=== PATIENT | male | born 1955 | race Caucasian/White ===

== ENCOUNTER → 2016-08-25 | Outpatient (CLI) | payer BC ==
[~2016-08-25] MED LIST: DIAZ-165 PO; GABA-113 PO; LISI1TAB3 PO; METO25TA56 PO; OXYC-106 PO; PARO1TAB27 PO; PRLSR20 PO
--- NOTE | 2016-08-25 17:10 | DIAGNOSTIC IMAGING REPORT ---
CHEST 2 VIEWS ROUTINE CLINICAL HISTORY: M54.5 preoperative evaluation COMPARISON STUDY: No previous studies for comparison. FINDINGS: The bones soft tissues and hemidiaphragms are normal. The cardiomediastinal silhouette is normal. The lungs are clear. The pulmonary vasculature is normal. IMPRESSION: Negative chest. Electronically signed by: Arash Ramos M.D. 08/25/2016 5:09 PM Dictated Date/Time: 08/25/2016 5:09 PM
== END | disposition home or self-care (01) ==
LOC: C.CPL 16:11
PROVIDERS: ATTEND Orthopaedic Surgery Orthopaedic Surgery of the Spine
DX: M54.5 Low back pain (principal)

== ENCOUNTER 2016-09-19 06:33 | Inpatient (IN) | payer BC ==
[2016-08-25 17:14] LABS: COMPLETE YES; HEMATOCRIT 46.5 % (42-52); IG% 0.2 %; LYMPH % 16.8 %; LYMPH ABS # 1.85 K/uL (1.2-3.4); MEAN CELL VOLUME 90.8 fL (80-100); MEAN CORPUSCULAR HEMOGLOBIN 31.3 pg (25-34); MEAN CORPUSCULAR HGB CONC 34.4 g/dl (32-36); MEAN PLATELET VOLUME 10.7 fL (7.4-10.4); MONO % 5.5 %; NEUT % 77.5 %; PLATELET COUNT 303 K/uL (130-400); RED BLOOD COUNT 5.12 M/uL (4.7-6.1); WHITE BLOOD COUNT 10.99 K/uL (4.8-10.8)
[2016-08-25 17:18] LABS: URINE APPEARANCE CLEAR (CLEAR); URINE BILIRUBIN NEG (NEG); URINE COLOR DK YELLOW; URINE EPITHELIAL CELL AUTO >30 /lpf (0-5); URINE NITRITE NEG (NEG); URINE SPECIFIC GRAVITY 1.035 (1.000-1.030); UROBILINOGEN NEG (NEG)
[2016-08-25 17:21] LABS: MANUAL MICROSCOPIC REQUIRED? NO; REVIEW REQ? YES
[2016-08-25 17:32] LABS: BLOOD UREA NITROGEN 23 mg/dl (7-18); BUN/CREATININE RATIO 24.9 (10-20); CALCIUM 9.5 mg/dl (8.5-10.1); CARBON DIOXIDE 32 mmol/L (21-32); CHLORIDE 104 mmol/L (98-107); CREATININE 0.93 mg/dl (0.60-1.40); GLUCOSE 115 mg/dl (70-99); POTASSIUM 4.7 mmol/L (3.5-5.1); SODIUM 140 mmol/L (136-145)
[2016-09-16 13:50] VITALS: BMI 25.0
[~2016-09-19] VITALS: Ht 182.9 cm; Wt 79.5 kg
[2016-09-19] VITALS (8 sets, daily range): BP systolic 103–142; BP diastolic 63–97; PULSE 56–90; TEMP 36.5–36.9; O2SAT 93–98; Ht 182.9 cm; Wt 79.5 kg
[~2016-09-19 06:33] MED LIST changes: +CEFAZOLIN 1000MG/55 ML D5W IV SCH
[2016-09-19] MEDS ORDERED: NALOXONE HCL 0.4 MG/1 ML VIAL/CARP IV PRN ×4 (08:15→15:15)
[2016-09-19] MEDS ORDERED: EpHEDrine SULFATE INJ 50 MG/ML AMP IV PRN (08:15)
[2016-09-19] MEDS ORDERED: MEPERIDINE HCL 25 MG/ML CARP IV PRN (08:15)
[2016-09-19] MEDS ORDERED: LABETALOL HCL IV 5 MG/ML 20ML IV PRN (08:15)
[2016-09-19] MEDS ORDERED: ONDANSETRON INJ 2 MG/ML 2 ML VIAL IV PRN ×2 (08:15→15:15)
[2016-09-19] MEDS ORDERED: PHENYLEPHRINE 100MCG/ML 5ML SYR IV PRN (08:15)
[2016-09-19] MEDS ORDERED: ATROPINE SULFATE 0.1 MG/ML 5ML SYR IV PRN (08:15)
[2016-09-19] MEDS ORDERED: FLUMAZENIL 0.1 MG/1 ML 10 ML VIAL IV PRN (08:15)
[2016-09-19] MEDS ORDERED: MIDAZOLAM HCL 1 MG/ML 2ML VIAL ONE (09:06)
[2016-09-19] MEDS ORDERED: FENTANYL CITRATE INJ 50 MCG/1 ML 2 ML VIAL ONE ×4 (09:06→11:24)
--- NOTE | 2016-09-19 09:14 | History & Physical Bridge Note ---
H&P Re-Evaluation Bridge Note: I have examined the patient, reviewed the History & Physical and in the interval since the performance of the History & Physical I have noted the following changes of clinical significance: No changes noted
--- NOTE | 2016-09-19 09:15 | History and Physical ---
History & Physical Date Sep 19, 2016. Chief Complaint back and leg pain History of Present Illness The patient is a 61 year old male with complaints of Additional History Hepatic Disease: No Endocrine Disorder: No Kidney Disease: No Hypertension: No Heart Disease: No Bleeding Tendencies: No Infectious Diseases: No Allergies Coded Allergies: Codeine (Unverified Allergy, Unknown, RASH, 09/19/16) Home Medications Scheduled Gabapentin (Neurontin), 300 MG PO HS Lisinopril (Zestril), 30 MG PO BID Metoprolol Tartrate (Lopressor) (Lopressor), 25 MG PO BID Omeprazole (Prilosec), 20 MG PO QAM Paroxetine (Paxil), 20 MG PO QAM Scheduled PRN Diazepam (Valium), 5 MG PO Q6H PRN for RN Oxycodone/Acetaminophen 10MG/325MG (Percocet 10MG/325MG), 1 TAB PO Q4H PRN for PRN Physical Examination Skin: warm/dry, no rash Eyes: normal inspection, EOMI, sclerae normal ENT: normal ENT inspection, pharynx normal Head: normocephalic, atraumatic Neck: supple, no adenopathy, trachea midline Respiratory/Chest: lungs clear, normal breath sounds, no respiratory distress Cardiovascular: regular rate, rhythm, no edema, no murmur Abdomen / GI: normal bowel sounds, non tender Back: normal inspection Extremities: normal inspection, normal range of motion Neurologic/Psych: no motor/sensory deficits, alert, normal reflexes, oriented x 3 Diagnosis lumbar stenosis/HNP L3-4 Plan of Treatment decompression fusion L3-4
[2016-09-19] MEDS ORDERED: SODIUM CHLORIDE 0.9% PF 50 ML VIAL ONE (09:29)
[2016-09-19] MEDS ORDERED: BUPIVACAINE/EPINEPHRINE 0.5% MPF 1:200,000 30 ML VIAL ONE (09:29)
[2016-09-19] MEDS ORDERED: BACITRACIN 50000 UNIT VIAL ONE (09:30)
[2016-09-19] MEDS ORDERED: KETAMINE HCL INJ 50 MG/ML 10 ML VIAL ONE (10:03)
[2016-09-19] MEDS ORDERED: HYDROmorphone INJ 2 MG/ML SYR/VIAL ONE ×2 (10:03→11:24)
[2016-09-19] MEDS ORDERED: EpHEDrine SULFATE INJ 50 MG/ML AMP ONE (10:40)
[2016-09-19] MEDS ORDERED: FLOSEAL HEMOSTATIC MATRIX 10ML TOP ONE (11:15)
[2016-09-19] MEDS ORDERED: ESMOLOL HCL 10 MG/ML 10 ML VIAL ONE ×2 (11:18→12:36)
[2016-09-19] MEDS ORDERED: LIDOCAINE HCL 2% 2 ML VIAL (20MG/ML) ONE (11:18)
[2016-09-19] MEDS ORDERED: DEXAMETHASONE SOD INJ 4 MG/ML VIAL ONE (11:18)
[2016-09-19] MEDS ORDERED: PROPOFOL IV EMULSION 10 MG/ML 20 ML VIAL IV ONE (11:18)
[2016-09-19] MEDS ORDERED: ROCURONIUM BROMIDE 10 MG/ML 5 ML VIAL ONE (11:18)
[2016-09-19] MEDS ORDERED: LABETALOL HCL IV 5 MG/ML 20ML IV ONE ×3 (11:18→12:36)
[2016-09-19] MEDS ORDERED: EpHEDrine SULFATE 50MG/5ML SYR ONE ×2 (11:18→12:36)
--- NOTE | 2016-09-19 11:20 | [facility] Operative Report ---
Operative Report Operative Date Sep 19, 2016. Pre-Operative Diagnosis Lumbar stenosis, herniated nucleus pulposus L3-4 Post-Operative Diagnosis same Procedure(s) Performed tlif Surgeon Dr. Basil Brown Compensation Business Partner Surgeon(s) Fatemeh Gonzalez PA-C Estimated Blood Loss 75ml Findings hnp Specimens None per surgeon I attest to the content of the Intraoperative Record and any orders documented therein. Any exceptions are noted below.
[2016-09-19] MEDS: FENTANYL CITRATE INJ 50 MCG/1 ML 2 ML VIAL IV PRN ×2 (11:44→11:49)
[2016-09-19] MEDS: HYDROmorphone INJ 2 MG/ML SYR/VIAL IV PRN ×4 (11:54→12:19)
[2016-09-19] MEDS ORDERED: GLYCOPYRROLATE INJ 0.2 MG/ML VIAL ONE (12:36)
[2016-09-19] MEDS ORDERED: KETOROLAC TROMETHAMINE 30 MG/ML VIAL ONE (12:36)
[2016-09-19] MEDS ORDERED: ONDANSETRON INJ 2 MG/ML 2 ML VIAL ONE ×2 (12:36)
[2016-09-19] MEDS ORDERED: NEOSTIGMINE METHYLSULFATE 1 MG/ML 10ML VIAL ONE (12:36)
--- NOTE | 2016-09-19 12:50 | Anesthesiology Progress Note ---
Anesthesia Post Op Note Date & Time Sep 19, 2016 at 12:49 Vital Signs Pain Intensity: 3 Vital Signs Past 12 Hours Date Time Temp Pulse Resp B/P (MAP) Pulse Ox O2 Delivery O2 Flow Rate FiO2 09/19/16 12:45 55 17 130/81 100 Nasal Cannula 4 09/19/16 12:35 36.4 65 17 127/82 100 Nasal Cannula 4 09/19/16 12:25 63 16 136/85 99 Nasal Cannula 4 09/19/16 12:15 62 14 143/96 100 Nasal Cannula 4 09/19/16 12:05 66 12 160/100 100 Nasal Cannula 4 09/19/16 11:55 60 12 155/99 100 Mask 10 09/19/16 11:45 63 18 149/96 100 Mask 10 09/19/16 11:35 36.2 71 14 152/88 93 Mask 10 09/19/16 07:25 36.7 56 20 142/97 96 Room Air Notes Mental Status: alert / awake / arousable, participated in evaluation Pt Amnestic to Procedure: Yes Nausea / Vomiting: adequately controlled Pain: adequately controlled Airway Patency, RR, SpO2: stable & adequate BP & HR: stable & adequate Hydration State: stable & adequate Anesthetic Complications: no major complications apparent
--- NOTE | 2016-09-19 13:09 | DIAGNOSTIC IMAGING REPORT ---
LUMBAR SPINE, INTRAOPERATIVE FLUOROSCOPY HISTORY: L3-L4 decompression and fusion. FLUOROSCOPY TIME: 14 seconds. FINDINGS: Intraoperative fluoroscopy was provided for the lumbar spine. 2 fluoroscopic spot images were obtained. Posterior decompression fusion at L3-L4 with pedicle screws and rods. The hardware appears intact. IMPRESSION: Fluoroscopy provided for a L3-L4 posterior decompression and fusion. Electronically signed by: Ji Larson M.D. 09/19/2016 1:08 PM Dictated Date/Time: 09/19/2016 1:07 PM
[2016-09-19] MEDS ORDERED: NURSING VERBAL MED ORDER ONE (13:30)
[2016-09-19] MEDS ORDERED: HYDROmorphone HCL 0.5MG/ML 50 ML CASSETTE ONE (13:31)
[2016-09-19] MEDS ORDERED: HYDROmorphone HCL 0.5MG/ML 50 ML CASSETTE IV PRN ×2 (13:45→15:15)
[2016-09-19] MEDS ORDERED: SODIUM CHLORIDE 0.9% 1000ML 1,000 ML IV SCH ×2 (13:45→15:11)
--- NOTE | 2016-09-19 14:18 | OPERATIVE REPORT ---
DATE OF OPERATION: 09/19/2016 PREOPERATIVE DIAGNOSES: Spinal stenosis, herniated nucleus pulposus, L3-L4. POSTOPERATIVE DIAGNOSES: Same. PROCEDURE PERFORMED: 1. Lumbar decompression, medial facetectomies and foraminotomy at L3-L4. 2. Posterior spinal fusion, L3-L4. 3. Posterior instrumentation L3-L4 using Orthros rods and screws. 4. Interbody fusion L3-L4. 5. Placement of PEEK cage 12 x 26 at L3-L4. 6. Placement of locally harvested morcellized autograft in posterior gutters. 7. Placement of Infuse collagen sponge combined with Mastergraft in the posterolateral gutters and Conchita bone grafting in interbody space. SURGEON: Dr. Basil Brown. SUPERVISOR ASBESTOS REMOVAL: Fatemeh Gonzalez PA-C. Due to the complex nature of the procedure, the entire surgery was performed with the assistant program director of DINESH Oakley.? The dietary assistant, under direct supervision, was involved in the actual performance of all aspects of the surgical procedure including hemostasis, tissue retraction and incision, instrument management, patient positioning, and wound closure. ANESTHESIA: General. DISPOSITION: The patient awakened and taken to PACU in stable condition. HISTORY OF PATIENT'S PROBLEMS: This is a 61-year-old male who presents with above-mentioned diagnosis. After failing an extensive course of nonoperative care, elected to undergo the above-mentioned procedure. Risks, benefits, pros, cons, and alternatives were outlined in detail preoperatively. DESCRIPTION OF PROCEDURE: The patient was met with preoperatively, case discussed and all questions were addressed. At that point the patient was taken back to operative suite and after undergoing successful general intubation by the department of anesthesia was placed in prone position on Joe table atop Adarsh frame. All bony prominences were well padded and the eyes were inspected to ensure there was no external pressure placed upon them. At this point, lumbar spine was prepped and draped in normal sterile fashion. Sharp dissection with the assistance of Bovie cautery performed down to and exposing the lamina and transverse processes of L3, L4 from caudal to cephalad fashion, complete laminectomy of L3 was performed including complete facetectomy on the left to address the massive disk herniation that had emanated both cephalad as well as out into the foramen. After complete decompression and addressing the disk herniation, pedicle screws then placed in L3 and L4 bilaterally with assistance of fluoroscopy and appropriate size jordan provisionally placed. Through a transforaminal approach on the left, a complete discectomy of L3, L4 was performed, endplates curetted to subcortical bleeding bone and a 12 x 26 mm PEEK cage filled with Conchita bone grafting tapped into position. The rods were then compressed, locked into final position bilaterally and transverse processes of L3-L4 burred to subcortical bleeding bone. Infuse collagen sponge combined with Mastergraft and locally harvested morselized autograft was placed in the posterior gutters. A 7 flat ALYSSA drain was inserted. Incision was closed with 1-0 Vicryl in the fascia, 2-0 Vicryl subcutaneously, 4-0 Monocryl for final skin closure. Steri-Strips and sterile dressing placed. The patient was awakened and taken to PACU in stable condition. I attest to the content of the Intraoperative Record and any orders documented therein. Any exceptions are noted below. OLIVIAD
[2016-09-19] MEDS ORDERED: BISACODYL 10 MG SUPP PR PRN (15:15)
[2016-09-19] MEDS ORDERED: DIAZEPAM 5MG TAB PO PRN (15:15)
[2016-09-19] MEDS ORDERED: LORAZEPAM INJ 0.5 MG in SYRINGE 0 ML IV PRN (15:15)
[2016-09-19] MEDS ORDERED: ALUMINUM/MAGNESIUM SUSP 30 ML UDC PO PRN (15:15)
[2016-09-19] MEDS ORDERED: FAMOTIDINE 20 MG TAB PO PRN (15:15)
[2016-09-19] MEDS ORDERED: MAGNESIUM HYDROXIDE SUSP 30 ML UDC PO PRN (15:15)
[2016-09-19] MEDS ORDERED: ACETAMINOPHEN IV 100 ML IV PRN (15:15)
[2016-09-19] MEDS ORDERED: DO NOT ADMINISTER FLU VACCINE PRN ×3 (15:15)
[2016-09-19] MEDS ORDERED: LORAZEPAM 0.5 MG TAB PO PRN (15:15)
[2016-09-19] MEDS ORDERED: hydrOXYzine HCL 25 MG TAB PO PRN (15:15)
[2016-09-19] MEDS ORDERED: PROMETHAZINE HCL INJ 12.5 MG in SODIUM CHLORIDE 0.9% 50ML 50 ML IV PRN (15:15)
[2016-09-19] MEDS ORDERED: DO NOT ADMINISTER PNEUMOCOCCAL VACCINE PRN ×2 (15:15)
[2016-09-19] MEDS ORDERED: ACETAMINOPHEN 500 MG TAB PO PRN (15:15)
[2016-09-19] MEDS ORDERED: SOD PHOSPHATE/SOD BIPHOSPHATE ENEMA 132 ML BTL PR PRN (15:15)
[2016-09-19] MEDS ORDERED: METOCLOPRAMIDE HCL INJ 5 MG/ML 2 ML VIAL IV PRN (15:15)
[2016-09-19] MEDS: LACTATED RINGER'S 1000ML 1,000 ML IV SCH ×2 (16:40→21:58)
[2016-09-19] MEDS: DEXAMETHASONE INJ 6 MG in SYRINGE 0 ML IV SCH (16:41)
[2016-09-19] MEDS: CEFAZOLIN IV 2,000 MG in DEXTROSE 5% 50ML 50 ML IV SCH (18:28)
[2016-09-19] MEDS: DOCUSATE SODIUM/SENNA 50/8.6MG TAB PO SCH (20:48)
[2016-09-19] MEDS: LISINOPRIL 10 MG TAB PO SCH (20:48)
[2016-09-19] MEDS: GABAPENTIN 300 MG CAP PO SCH (20:48)
[2016-09-19] MEDS: PATIENT'S HEIGHT AND/OR WEIGHT NEEDED SCH (20:49)
[2016-09-19] MEDS: METOPROLOL TARTRATE 25 MG TAB PO SCH (20:49)
[2016-09-20] VITALS (9 sets, daily range): BP systolic 101–166; BP diastolic 59–101; PULSE 52–86; TEMP 36.5–36.9; O2SAT 95–99
[2016-09-20] MEDS: DEXAMETHASONE INJ 6 MG in SYRINGE 0 ML IV SCH ×2 (00:27→08:44)
[2016-09-20] MEDS: CEFAZOLIN IV 2,000 MG in DEXTROSE 5% 50ML 50 ML IV SCH (02:23)
[2016-09-20] MEDS: LACTATED RINGER'S 1000ML 1,000 ML IV SCH (05:53)
[2016-09-20] MEDS ORDERED: DC PCA SCH (06:00)
[2016-09-20] MEDS ORDERED: HYDROmorphone INJ 1 MG/ML SYR IV PRN ×2 (06:00)
[2016-09-20] MEDS ORDERED: OXYCODONE HCL IR 5 MG TAB (IMMEDIATE RELEASE) PO PRN (06:00)
[2016-09-20] MEDS ORDERED: NURSING VERBAL MED ORDER ONE ×3 (06:30→19:00)
[2016-09-20] MEDS: PATIENT'S HEIGHT AND/OR WEIGHT NEEDED SCH (07:06)
[2016-09-20 07:31] LABS: COMPLETE YES; HEMATOCRIT 37.5 % (42-52); IG% 0.2 %; LYMPH % 9.4 %; LYMPH ABS # 1.43 K/uL (1.2-3.4); MEAN CELL VOLUME 91.2 fL (80-100); MEAN CORPUSCULAR HEMOGLOBIN 31.4 pg (25-34); MEAN CORPUSCULAR HGB CONC 34.4 g/dl (32-36); MEAN PLATELET VOLUME 11.1 fL (7.4-10.4); NEUT % 83.4 %; PLATELET COUNT 285 K/uL (130-400); RED BLOOD COUNT 4.11 M/uL (4.7-6.1)
[2016-09-20 08:02] LABS: BUN/CREATININE RATIO 20.2 (10-20); CREATININE 0.83 mg/dl (0.60-1.40); POTASSIUM 4.1 mmol/L (3.5-5.1)
[2016-09-20] MEDS ORDERED: OXYC-106 PO (08:03)
--- NOTE | 2016-09-20 08:04 | Discharge Instructions ---
Discharge Instructions Date of Service Sep 20, 2016. Admission Reason for Admission: Lumbar Spinal Stenosis Discharge Discharge Diagnosis / Problem: stenosis Discharge Goals Goal(s): Improve function Activity Recommendations Activity Limitations: per Instructions/Follow-up section . Instructions / Follow-Up Instructions / Follow-Up ACTIVITY RECOMMENDATIONS: SELF CARE INSTRUCTIONS AFTER THORACIC/LUMBAR FUSIONS 1. You may walk to your tolerance. It is good exercise for your legs and back. Expect some back and intermittent leg aches and pains. 2. You may perform "counter-top" level activities (make a sandwich, bay with a project, etc.). 3. No bending or lifting of more than 10 pounds or back twisting of any nature (roll like a log when turning in bed). 4. You may ride in a car for 20-30 minutes at a time. No driving until after your first visit with your doctor. 5. Frequent changes of position and restricting sitting to 30 minutes at a time will help limit the amount of back spasms and stiffness you may experience. 6. You may discontinue the use of ambulatory aids (cane, crutches, etc.) once your strength and confidence allow. 7. You may insurance clerk the shower and let water strike your incision when you arrive home at least once daily. Do not take a tub bath, sit in a hot tub or go into a swimming pool until after your first recheck in the office. SPECIAL CARE INSTRUCTIONS: VERY IMPORTANT TO READ AND REVIEW A. Your surgical incision has been closed with a cosmetic suture under the skin that will dissolve in about 6 weeks. In 14 days, you can use a pair of clean scissors and cut the suture that is left outside of the skin at the ends of your incision. 1. The small skin tapes can be removed 7 days after surgery if they have not fallen off by that point. 2. You may keep the wound open to air as much as possible to promote healing after post-op day number 5 unless told otherwise by your doctor. 3. If you think the wound looks like it is becoming infected (redness or worsening drainage) and/or you are experiencing fever, chill or worsening back pain and muscle spasms, contact the office so that we may evaluate you as soon as possible. B. Complications are uncommon, but please contact us if you have any signs or symptoms of: 1. wound infection (fever higher than 102.5 degrees F, redness, separation of wound, drainage, or increasing pain from the incision) 2. blood clots in legs (pain, swelling, redness and warmth in legs) 3. urinary tract infection (fever higher than 102.5 degrees F, burning upon urination or increased frequency of urination) 4. nerve problems (inability to walk on your toes or heels, numbness, loss of bowel or bladder control) 5. any other symptoms that concern you C. Please call the office at if you have any concerns or questions about your operation or recovery. D. No smoking! Smoking drastically decreases the chance of a solid fusion. E. Do not take any anti-inflammatory medications (Indocin, Advil, Motrin, Aspirin, Naprosyn, etc.) as these may inhibit the chance of a solid fusion. Tylenol is okay to take for pain. MANAGING PAIN AFTER SPINAL SURGERY 1. Narcotic medication is intended for short-term use and will be provided for surgical pain. Surgical pain usually lasts for a period of 4-6 weeks. Narcotic medication includes Percocet, Vicodin, Darvocet, Tylenol #3 or Lortab. 2. Longer-term pain is more appropriately treated with non-narcotic medication such as Tylenol ES. 3. Muscle spasm is not appropriately treated with narcotics. Muscle relaxers such as Soma, Flexeril or Skelaxin can be used along with Tylenol ES. 4. Remember that we all live with some "aches and pains". This is not unusual or uncommon after an injury or as we get older. a. Back pain is expected and may include muscle spasms for 4 to 6 weeks after surgery. The pain should gradually improve. If the pain worsens for no apparent reason, please contact the office. b. Intermittent leg pain may also be experienced and should not be concerned about unless it worsens for no apparent reason. If so, please contact the office. 5. We will provide appropriate medication within the normal guidelines of their prescribed use. We will also be very cautious and aware of potential abuse and extended duration of patients' medication needs. a. Pain medications are for your comfort and to assist with sleep and rest so that the tissue can heal. They are not provided in order to return to normal activity and should not be used through the day. To do so or worsening pain at night can result from ongoing tissue damage and development of tolerance to the prescribed medicine. 6. Please allow 2-3 days to process refills. Prescriptions will not be mailed but must be picked up at the office. FOLLOW UP VISIT: Keep your scheduled follow-up appointment. Any questions, please call the office at . Current Hospital Diet Patient's current hospital diet: Regular Diet Discharge Diet Recommended Diet: Regular Diet Procedures Procedures Performed: L3-L4 Lumbar Decompresson / Laminectomy, Discectomy, Posterior Spinal Fusion, Instrumentation, Interbody Fusion With Application of Interbody Cage L3-L4, Posterolateral Gutter Fusion; Application of Bone Morphogenetic Protein; Application of Conchita Pending Studies Studies pending at discharge: no Medical Emergencies . Who to Call and When: Medical Emergencies: If at any time you feel your situation is an emergency, please call 911 immediately. . Non-Emergent Contact Non-Emergency issues call your: Primary Care Provider . "Provider Documentation" section prepared by Basil Brown. . VTE Core Measure Inpt VTE Proph given/why not?: Adalid Vivar, SCD's
--- NOTE | 2016-09-20 08:15 | PROGRESS NOTE ---
DATE: 09/20/2016 SUBJECTIVE: Postop day 1. Back pain controlled. Leg pain improved. Vital signs stable. T-max 36.8. ALYSSA drained 55 mL. Hematocrit this a.m. is 12.9. PHYSICAL EXAMINATION: Has good strength to testing, he is sitting up in bed. ASSESSMENT: Status post lumbar decompression and fusion. PLAN: At this time, we will initiate physical therapy, advance his bowel regimen and anticipate home in the next day or so.
[2016-09-20] MEDS: PANTOprazole SOD 40 MG TAB PO SCH (08:44)
[2016-09-20] MEDS: LISINOPRIL 10 MG TAB PO SCH ×2 (08:44→20:55)
[2016-09-20] MEDS: PAROXETINE 20 MG TAB PO SCH (08:44)
[2016-09-20] MEDS: OXYCODONE HCL IR 5 MG TAB (IMMEDIATE RELEASE) PO PRN ×4 (08:45→20:56)
[2016-09-20 08:46] LABS: CALCIUM 8.8 mg/dl (8.5-10.1)
[2016-09-20] MEDS: METOPROLOL TARTRATE 25 MG TAB PO SCH ×2 (08:46→20:55)
[2016-09-20] MEDS: GABAPENTIN 300 MG CAP PO SCH (20:54)
[2016-09-20] MEDS: DOCUSATE SODIUM/SENNA 50/8.6MG TAB PO SCH (20:54)
[2016-09-20] MEDS ORDERED: METOPROLOL TARTRATE 25 MG TAB PO SCH (21:00)
[2016-09-21] MEDS: OXYCODONE HCL IR 5 MG TAB (IMMEDIATE RELEASE) PO PRN ×4 (01:36→14:32)
[2016-09-21 03:16] VITALS: BP 139/82
[2016-09-21] MEDS: POLYETHYLENE (MIRALAX) 17 GM PACK PO SCH ×2 (05:38→12:00)
[2016-09-21 05:58] VITALS: BP 147/84; PULSE 73; TEMP 36.6; O2SAT 100
[2016-09-21 07:37] VITALS: BP 134/78; PULSE 68; TEMP 36.9; O2SAT 96
[2016-09-21 08:12] VITALS: O2SAT 96
[2016-09-21] MEDS: METOPROLOL TARTRATE 25 MG TAB PO SCH (09:45)
[2016-09-21] MEDS: PANTOprazole SOD 40 MG TAB PO SCH (09:45)
[2016-09-21] MEDS: PAROXETINE 20 MG TAB PO SCH (09:46)
[2016-09-21] MEDS: LISINOPRIL 10 MG TAB PO SCH (09:46)
--- NOTE | 2016-09-21 11:02 | Pain Management Consultation ---
Pain Consultation Date of Service Sep 20, 2016. Pain Consultation I spoke with Dr. Brown over the phone. He reports that the patient is doing acceptable on PO narcotics at this time postop and does not require pain consult at this time. Plan to d/c pain management consult at this time and re- consult if needed.
[2016-09-21 13:56] VITALS: BP 134/78; PULSE 68; TEMP 36.9; O2SAT 96
--- NOTE | 2016-09-21 15:56 | DISCHARGE SUMMARY ---
PRINCIPAL DIAGNOSIS: Spinal stenosis. HOSPITAL COURSE FOLLOWS: On September 19 the patient underwent lumbar decompression and fusion L3-L4, tolerated this well and taken to the orthopedic floor postoperatively. Postop day #1, he was up and ambulatory. Leg pain markedly improved and progressed to postop day #2. ALYSSA drain decreased appropriately. Subsequently discharged home. Discharge orders and instructions found on the chart for further review.
== END 2016-09-21 14:35 | disposition home or self-care (01) | DRG 460 ==
LOC: C.ACU 06:33 → C.3E 08:30 → CANBEDREQ 14:33 → ENRESERV 15:24
PROVIDERS: ADMIT Orthopaedic Surgery Orthopaedic Surgery of the Spine; ATTEND Orthopaedic Surgery Orthopaedic Surgery of the Spine
PROC: 0ST20ZZ Resection of Lumbar Vertebral Disc, Open Approach (ICD-10-PCS; principal; 2016-09-19 09:45)
PROC: 0SG00A1 (ICD-10-PCS; principal; 2016-09-19 09:45)
DX: M48.06 Spinal stenosis, lumbar region (principal); M51.26 Other intervertebral disc displacement, lumbar region; Z79.899 Other long term (current) drug therapy